=== PATIENT | female | born 1975 | race African-American/Black ===

== ENCOUNTER 2016-04-06 17:40 | Emergency (ER) | payer OTHER ==
[~2016-04-06] VITALS: Ht 157.5 cm; Wt 45.0 kg
[~2016-04-06 17:40] MED LIST: NAPR-576 PO
[2016-04-06 17:43] VITALS: BP 114/67; PULSE 116; RESP 20; TEMP 100.1; O2SAT 97
--- NOTE | 2016-04-06 18:10 | PD ---
HPI Chief Complaint: Abdominal Pain Time Seen by Provider: 17:50 Travel History International Travel<30 days: No Contact w/Intl Traveler<30days: No Traveled to known affect area: No History of Present Illness HPI Patient is a 40-year-old female who presents emergency Department with complaint of abdominal pain. Patient states that for the last month she has had heavy vaginal bleeding. "My period came on and never went away". She describes vaginal bleeding like a menses for approximately 30 days. She has not been passing any clots. For the last 48 hours she has had moderate low abdominal pain, crampy in nature. This is diffuse throughout the low abdomen. She notes some dysuria, urinary frequency. Unclear whether she's had any hematuria given her vaginal bleeding. The pain in the abdomen radiates to the low back into the flank. She feels generally weak, fatigued, nauseous but has not been having any vomiting or diarrhea. Patient does not believe she could be . [facility] Past Medical History Immunizations Current: Yes ?: Not Social History Alcohol Use: No Tobacco Use: No Substance Use: No Allergies-Medications (Allergen,Severity, Reaction): Coded Allergies: No Known Allergies (Verified , 04/06/16) Reported Meds & Prescriptions Reported Meds & Active Scripts Active No Active Prescriptions or Reported Medications Review of Systems Except as stated in HPI: all other systems reviewed are Neg Physical Exam Narrative GENERAL: Cachectic female in mild distress SKIN: Warm and dry. HEAD: Normocephalic. EYES: No scleral icterus. No injection or drainage. ENT: Mucous membranes pink and moist. NECK: Supple CARDIOVASCULAR: Tachycardic with heart rate in the 110s, regular rhythm. No murmur appreciated. RESPIRATORY: No accessory muscle use. Clear to auscultation. Breath sounds equal bilaterally. GASTROINTESTINAL: Scaphoid abdomen. Soft, tender throughout the lower abdomen but no rebound or guarding. GENITOURINARY: Normal external female genitalia. Blood within the vaginal vault per the cervix. The cervix grossly appears enlarged. There is a nodule versus small mass at approximately 10 to 12 o'clock. Patient has moderate tenderness to palpation of the cervix, uterus and less so bilateral adnexa. She is quite thin but I'm not able to feel any masses. MUSCULOSKELETAL: Normal gait NEUROLOGICAL: Awake and alert. Normal speech. PSYCHIATRIC: Appropriate mood and affect; insight and judgment normal. Data Data Last Documented VS Vital Signs Date Time Temp Pulse Resp B/P Pulse Ox O2 Delivery O2 Flow Rate FiO2 04/06/16 18:17 106 16 120/89 97 Room Air 04/06/16 17:43 100.1 Orders Complete Blood Count With Diff (04/06/16 18:02) Basic Metabolic Panel (Bmp) (04/06/16 18:02) Gc And Chlamydia Pcr (04/06/16 18:02) Us Pelvis Comp Bladder Trimmer/Non-Preg (04/06/16 ) Wet Prep Profile (04/06/16 18:02) Urinalysis - C+S If Indicated (04/06/16 18:02) Iv Access Insert/Monitor (04/06/16 18:02) Sodium Chloride 0.9% Flush (Ns Flush) (04/06/16 18:15) Ondansetron Inj (Zofran Inj) (04/06/16 18:15) Ed Urine Pregnancytest Poc (04/06/16 18:02) Oximetry (04/06/16 18:02) Morphine Inj (Morphine Inj) (04/06/16 18:15) Sodium Chlor 0.9% 1000 Ml Inj (Ns 1000 M (04/06/16 18:15) Acetaminophen (Tylenol) (04/06/16 18:15) Labs Laboratory Tests Test 04/06/16 18:15 White Blood Count 7.1 TH/MM3 Red Blood Count 4.94 MIL/MM3 Hemoglobin 13.8 GM/DL Hematocrit 41.0 % Mean Corpuscular Volume 82.9 FL Mean Corpuscular Hemoglobin 28.0 PG Mean Corpuscular Hemoglobin 33.8 % Concent Red Cell Distribution Width 13.2 % Platelet Count 254 TH/MM3 Mean Platelet Volume 8.1 FL Neutrophils (%) (Auto) 77.3 % Lymphocytes (%) (Auto) 14.2 % Monocytes (%) (Auto) 7.4 % Eosinophils (%) (Auto) 0.4 % Basophils (%) (Auto) 0.7 % Neutrophils # (Auto) 5.5 TH/MM3 Lymphocytes # (Auto) 1.0 TH/MM3 Monocytes # (Auto) 0.5 TH/MM3 Eosinophils # (Auto) 0.0 TH/MM3 Basophils # (Auto) 0.0 TH/MM3 CBC Comment DIFF FINAL Differential Comment Urine Color YELLOW Urine Turbidity HAZY Urine pH 7.0 Urine Specific [place] 1.022 Urine Protein 30 mg/dL Urine Glucose (UA) NEG mg/dL Urine Ketones NEG mg/dL Urine Occult Blood TRACE Urine Nitrite NEG Urine Bilirubin NEG Urine Urobilinogen 4.0 MG/DL Urine Leukocyte Esterase SMALL Urine RBC 2 /hpf Urine WBC 3 /hpf Urine Squamous Epithelial 2 /hpf Cells Urine Mucus MOD /lpf Microscopic Urinalysis Comment CULT NOT INDICATED Clue Cells (Wet Prep) NONE SEEN Vaginal Trichomonas (Wet Prep) NONE SEEN Vaginal Yeast (Wet Prep) NONE SEEN Sodium Level 133 MEQ/L Potassium Level 3.2 MEQ/L Chloride Level 96 MEQ/L Carbon Dioxide Level 28.7 MEQ/L Anion Gap 8 MEQ/L Blood Urea Nitrogen 9 MG/DL Creatinine 0.68 MG/DL Estimat Glomerular Filtration 117 ML/MIN Rate Random Glucose 74 MG/DL Calcium Level 9.2 MG/DL [facility] Medical Decision Making Medical Screen Exam Complete: Yes Emergency Medical Condition: Yes Medical Record Reviewed: Yes Differential Diagnosis 41-year-old female with vaginal bleeding times one month and now 48 hours of moderate low crampy abdominal discomfort. Questionable cervical mass versus nodule on pelvic examination with uterine and adnexal tenderness. Differential includes , ectopic , cervical polyp, cervical mass, cervical cancer, endometrial cancer, leiomyoma, UTI. Patient is tachycardic and has a low-grade fever, differential includes tubo-ovarian abscess. Her abdominal examination itself is benign and really the bulk of her tenderness is in the pelvis. Appendicitis less likely. Narrative Course Patient placed on monitor, IV established and blood obtained. Given 4 mg morphine, 4 mg Zofran, 1 g Tylenol, 1 L normal saline bolus. CBC, BMP, urinalysis, urine test, wet prep unremarkable. GC and Chlamydia sent. Formal pelvic ultrasound remains pending at the time of dictation. Patient signed out to oncoming provider waiting results of same. Scripts No Active Prescriptions or Reported Meds Mae Ta MD Apr 06, 2016 18:10
[2016-04-06] MEDS ORDERED: ONDANSETRON HCL 4 MG/2 ML VIAL IVP ONE (18:15)
[2016-04-06] MEDS ORDERED: MORPHINE SULFATE 4 MG/ML INJ IV PUSH ONE (18:15)
[2016-04-06] MEDS ORDERED: SODIUM CHLOR 0.9% 1000 ML INJ 1,000 ML IV ONE (18:15)
[2016-04-06] MEDS ORDERED: ACETAMINOPHEN 500 MG CPLT PO ONE (18:15)
[2016-04-06] MEDS ORDERED: SODIUM CHLORIDE 0.9% FLUSH 5 ML FLUSH IVF PRN (18:15)
[2016-04-06 18:17] VITALS: BP 120/89; PULSE 106; RESP 16; O2SAT 97
[2016-04-06 18:36] LABS: BLOOD, URINE TRACE (NEG); COMMENT (UR) CULT NOT INDICATED; CULTURE IF INDICATED CULT NOT INDICATED; GLUCOSE,URINE NEG (NEG); KETONE, URINE NEG (NEG); MUCUS URINE MOD /lpf (OCC); NITRITE,URINE NEG (NEG); SQUAMOUS EPITHELIAL CELL URINE 2 /hpf (0-5); URINE COLOR YELLOW (YELLW/STRAW)
[2016-04-06 18:40] LABS: AUTOMATED NEUTROPHIL # 5.5 TH/MM3 (1.8-7.7); BASOPHIL % 0.7 % (0.0-2.0); EOSINOPHIL % 0.4 % (0.0-4.0); HEMO FLAGS DIFF FINAL; LYMPH % 14.2 % (9.0-44.0); MEAN CELL VOLUME 82.9 FL (80.0-100.0); MEAN CORPUSCULAR HGB CONC 33.8 % (32.0-36.0); MONO % 7.4 % (0.0-8.0); NEUT % 77.3 % (16.0-70.0); PLATELET COUNT 254 TH/MM3 (150-450); RED BLOOD COUNT 4.94 MIL/MM3 (4.00-5.30); RED CELL DISTRIBUTION WIDTH 13.2 % (11.6-17.2); WHITE BLOOD COUNT 7.1 TH/MM3 (4.0-11.0)
[2016-04-06 18:52] LABS: BICARBONATE 28.7 MEQ/L (21.0-32.0); POTASSIUM 3.2 MEQ/L (3.5-5.1)
[2016-04-06 19:20] VITALS: BP 105/65; PULSE 100; RESP 18; O2SAT 98
[2016-04-06] MEDS ORDERED: HYDROmorphone HCL PF 1 MG/ML VIAL IV PUSH ONE ×2 (19:45→21:30)
[2016-04-06] MEDS ORDERED: POTASSIUM CHLORIDE 20 MEQ CONTROLLED RELEASE TAB PO ONE (20:15)
[2016-04-06 20:39] LABS: CHLAMYDIA PCR DETECTED (NOT DETECT); NEISSERIA PCR NOT DETECTED (NOT DETECT)
--- NOTE | 2016-04-06 20:43 | RADRPT ---
EXAM DATE/TIME: 04/06/2016 19:45 [place] COMPARISON: No previous studies available for comparison. INDICATIONS : Right pelvic pain. MEDICAL HISTORY : Right pelvic pain. SURGICAL HISTORY : None. ENCOUNTER: Initial ACUITY: 1 day PAIN SCORE: 10/10 LOCATION: Bilateral pelvis MEASUREMENTS: UTERUS: 9.3 x 6.2 x 3.9 cm ENDOMETRIAL STRIPE: 6 mm RIGHT OVARY: 4.7 x 3.2 x 4.3 cm LEFT OVARY: 2.2 x 3.7 x 1.9 cm FINDINGS: Lower uterine segment cysts are seen measuring up to 10 mm in size compatible with benign nabothian c ysts. No perceptible cervical mass. There are 15 and 22 mm cysts of the right ovary. The left ovary is normal. No free fluid. CONCLUSION: 1. Right ovarian cysts measuring 15 and 22 mm in size. These are not unexpected in a patient this age . If felt clinically indicated, a followup pelvic ultrasound in 8-12 weeks can be done to confirm res olution. 2. No acute abnormality of the uterus demonstrated. 3. Normal left ovary. Roberto Brenner MD on April 06, 2016 at 20:39 Board Certified Radiologist. This report was verified electronically.
[2016-04-06] MEDS ORDERED: cefTRIAXone 250 MG VIAL IM ONE (21:00)
[2016-04-06] MEDS ORDERED: LIDOCAINE HCL 1% 50 ML VIAL IM ONE (21:00)
[2016-04-06] MEDS ORDERED: AZITHROMYCIN PWD FOR SUSP 1 GM PACKET PO ONE (21:00)
[2016-04-06] MEDS ORDERED: ONDANSETRON HCL 4 MG/2 ML VIAL IV PUSH ONE (21:30)
[2016-04-06] MEDS ORDERED: HYDR-3533 PO (21:53)
--- NOTE | 2016-04-06 21:59 | PD ---
Data Data Last Documented VS Vital Signs Date Time Temp Pulse Resp B/P Pulse Ox O2 Delivery O2 Flow Rate FiO2 04/06/16 19:20 100 18 105/65 98 Room Air 04/06/16 17:43 100.1 Orders Complete Blood Count With Diff (04/06/16 18:02) Basic Metabolic Panel (Bmp) (04/06/16 18:02) Gc And Chlamydia Pcr (04/06/16 18:02) Wet Prep Profile (04/06/16 18:02) Urinalysis - C+S If Indicated (04/06/16 18:02) Iv Access Insert/Monitor (04/06/16 18:02) Sodium Chloride 0.9% Flush (Ns Flush) (04/06/16 18:15) Ondansetron Inj (Zofran Inj) (04/06/16 18:15) Ed Urine Pregnancytest Poc (04/06/16 18:02) Oximetry (04/06/16 18:02) Morphine Inj (Morphine Inj) (04/06/16 18:15) Sodium Chlor 0.9% 1000 Ml Inj (Ns 1000 M (04/06/16 18:15) Acetaminophen (Tylenol) (04/06/16 18:15) Hydromorphone Pf Inj (Dilaudid Pf Inj) (04/06/16 19:45) Potassium Chloride (Kcl) (04/06/16 20:15) Us Pelvis Comp W Transvaginal (04/06/16 ) Azithromycin Powd Pack (Zithromax Powd P (04/06/16 21:00) Ceftriaxone Inj (Rocephin Inj) (04/06/16 21:00) Lidocaine 1% Inj (50 Ml) (Xylocaine 1% I (04/06/16 21:00) Ct Abd/Pel W Iv Contrast(Rout) (04/06/16 21:21) Hepatic Functional Panel (04/06/16 21:21) Lipase (04/06/16 21:21) Hydromorphone Pf Inj (Dilaudid Pf Inj) (04/06/16 21:30) Ondansetron Inj (Zofran Inj) (04/06/16 21:30) Oral Contrast - Adult (04/06/16 21:43) Labs Laboratory Tests Test 04/06/16 18:15 White Blood Count 7.1 TH/MM3 Red Blood Count 4.94 MIL/MM3 Hemoglobin 13.8 GM/DL Hematocrit 41.0 % Mean Corpuscular Volume 82.9 FL Mean Corpuscular Hemoglobin 28.0 PG Mean Corpuscular Hemoglobin 33.8 % Concent Red Cell Distribution Width 13.2 % Platelet Count 254 TH/MM3 Mean Platelet Volume 8.1 FL Neutrophils (%) (Auto) 77.3 % Lymphocytes (%) (Auto) 14.2 % Monocytes (%) (Auto) 7.4 % Eosinophils (%) (Auto) 0.4 % Basophils (%) (Auto) 0.7 % Neutrophils # (Auto) 5.5 TH/MM3 Lymphocytes # (Auto) 1.0 TH/MM3 Monocytes # (Auto) 0.5 TH/MM3 Eosinophils # (Auto) 0.0 TH/MM3 Basophils # (Auto) 0.0 TH/MM3 CBC Comment DIFF FINAL Differential Comment Urine Color YELLOW Urine Turbidity HAZY Urine pH 7.0 Urine Specific [place] 1.022 Urine Protein 30 mg/dL Urine Glucose (UA) NEG mg/dL Urine Ketones NEG mg/dL Urine Occult Blood TRACE Urine Nitrite NEG Urine Bilirubin NEG Urine Urobilinogen 4.0 MG/DL Urine Leukocyte Esterase SMALL Urine RBC 2 /hpf Urine WBC 3 /hpf Urine Squamous Epithelial 2 /hpf Cells Urine Mucus MOD /lpf Microscopic Urinalysis Comment CULT NOT INDICATED Clue Cells (Wet Prep) NONE SEEN Vaginal Trichomonas (Wet Prep) NONE SEEN Vaginal Yeast (Wet Prep) NONE SEEN Sodium Level 133 MEQ/L Potassium Level 3.2 MEQ/L Chloride Level 96 MEQ/L Carbon Dioxide Level 28.7 MEQ/L Anion Gap 8 MEQ/L Blood Urea Nitrogen 9 MG/DL Creatinine 0.68 MG/DL Estimat Glomerular Filtration 117 ML/MIN Rate Random Glucose 74 MG/DL Calcium Level 9.2 MG/DL Chlamydia trachomatis DNA DETECTED (PCR) Neisseria gonorrhoeae DNA NOT DETECTED (PCR) [facility] Medical Record Reviewed: Yes Supervised Visit with MOISE: No Narrative Course CBC & BMP Diagram 04/06/16 18:15 Urinalysis shows negative UTI The wet prep is negative The serology studies are positive for chlamydia and pt was treated for it. K+ repleted. Ultrasound reveals cysts in the right ovary and the patient was advised to follow-up in 8-12 weeks for repeat ultrasound. She and her cousin were present. Discussion verbalize understanding. Referral for [facility] oncology was discussed. We'll provide that plus referral to Dr. Momin, the on-call hematology nurse for [facility]. The patient states she had abnormal cells on Pap smear from the ears prior. She understands that the cervical cancer is a significant concern and that prompt follow-up without fail is essential. INterval return precautions with special consideration over next 8 hours discussed; pt understands to return here expeditiously without fail. Diagnosis Primary Impression: Right ovarian cyst Additional Impressions: Chlamydia Abnormality of cervix Nausea Hypokalemia Referrals: Yolanda Momin MD 2 days Factory Maintenance Technician Cherelle Ceballos MD 2 days Gynecology cancer specialist Additional Instruction: You have a choice when it comes to health care, and we are glad that you chose [facility]. Hopefully, we have met your expectations on today's visit. You are welcome to return to [facility] at any time, as we are committed to meeting the health care needs of our community. Med/Other Pt SpecificInfo: Prescription(s) given Scripts Hydrocodone-Acetaminophen (Lortab)5-325 Mg Tab1-2 Tab PO Q6H PRN (PAIN SCALE 6 TO 10) #12 TAB Ref 0 Prov:Lee Jorge MD 04/06/16 Disposition: 01 DISCHARGE HOME Condition: Stable Lee Jorge MD Apr 06, 2016 21:59
[2016-04-06 22:23] VITALS: BP 109/73; PULSE 79; RESP 18; TEMP 98.4; O2SAT 100
[2016-04-06 22:58] VITALS: RESP 18
== END 2016-04-06 22:56 | disposition home or self-care (01) ==
LOC: NEPC 17:40
DX: N83.201 Unspecified ovarian cyst, right side (principal); A74.9 Chlamydial infection, unspecified; E87.6 Hypokalemia
CPT/HCPCS: 76830; 76856; 80048; 81001; 84703; 85025; 87210; 87491; 87591; 96372; 96374; 96375; 96376; 99284; J0696; J1170; J2270; J2405; J7030